=== PATIENT | male | born 1940 | race Caucasian/White ===

== ENCOUNTER → 2016-09-06 | Outpatient (CLI) | payer MEDICARE, BC ==
[~2016-09-06] MED LIST: ASPI-557 PO; ATEN50TA PO; ATOR40TA64 PO; CA C1TAB81 PO; FISH1CAP59 PO; IOHEXOL 180 MG/ML 20ml INJECTION ONE; LIDOCAINE 1% (10mg/ml) 5ml VIAL ONE; LOSA50TA52 PO; MethylPREDNISolone ACETATE 40mg/1ml ONE; TRIA1TAB3 PO
--- NOTE | 2016-09-06 09:03 | DI ---
Indication:ITS.REASON: M54.5 LOW BACK PAIN; R20.0 NUMBNESS IN LEGS Procedure:EPIDURAL INJ.SPINE W FLUO CATH LUMBAR EPIDURAL INJECTION: The patient has low back and radicular pain. The patient has not had any previous epidurals. The details of the procedure, including the benefits, risks, and alternatives were explained to the patient. All of their questions were answered. They stated that they understood and wished to proceed. Informed consent was then obtained. A pre-procedural timeout was performed to confirm the correct patient and procedure. Utilizing aseptic technique, local lidocaine anesthetic, and fluoroscopic guidance throughout, a 22-gauge spinal needle was directed into the lumbar epidural space via an interlaminar approach at the L4-5 level. Contrast was injected to assure proper positioning of the needle tip. A fluoroscopic image was then taken and archived. Subsequently, 120 mg Depo-Medrol was injected into the epidural space. The patient tolerated the procedure well. IMPRESSION: Successful lumbar epidural steroid injection. Fluoroscopy dose: 13.71 mGy (Cumulative air kerma) Chriss Tripathi RPA/NICOLASA performed this under my personal supervision. .
--- NOTE | 2016-09-06 09:17 | DI ---
Indication: ITS.REASON: M54.5 LOW BACK PAIN; R20.0 NUMBNESS IN LEGS PROCEDURE: MRI LUMBAR SPINE W/O CONTRAST: Encounter: Initial Comparison: None Technique: Multiplanar multisequence MR imaging of the lumbar spine was performed without contrast. Findings: Alignment of the lumbar spine is within normal limits. No acute fracture seen. Degenerative endplate edema at L1-L2. The conus medullaris terminates normally at L1. The paraspinal soft tissues are within normal limits. Segmental analysis: L1-L2: No focal disk herniation or central canal stenosis. No significant neural foraminal stenosis. L2-L3: Mild disk bulging without central canal stenosis. No focal neural foraminal stenosis. L3-L4: Small annular bulge with a superimposed left lateral protrusion. Degenerative facet disease contributes to mild central canal stenosis. Mild left and minimal right neural foraminal stenosis. There is disk material contacting the exiting left L3 nerve root. L4-L5: Degenerative facet hypertrophy with a small annular disk bulge contributes to mild central canal stenosis. Moderate to severe right and moderate left neural foraminal stenosis. L5-S1: Degenerative facet hypertrophy with disk height loss and a broad right lateral disk osteophyte. No significant central canal stenosis. Moderate right neural foraminal stenosis. No significant left foraminal narrowing. Impression: Degenerative disk and facet disease as above. .
== END ==
LOC: IMA 07:19
DX: M48.06 Spinal stenosis, lumbar region (principal); M47.896 Other spondylosis, lumbar region; M47.897 Other spondylosis, lumbosacral region; M51.36 Other intervertebral disc degeneration, lumbar region; M54.5 Low back pain; R20.0 Anesthesia of skin
CPT/HCPCS: 62323; 72148; J1030; Q9965